=== PATIENT | female | born 1970 | race Caucasian/White ===

== ENCOUNTER 2018-09-27 21:25 | Emergency (ER) | payer MEDICARE, MEDICAID ==
[~2018-09-27] VITALS: Ht 162.6 cm; Wt 64.5 kg
[2018-09-27 21:39] VITALS: Ht 162.6 cm; Wt 64.5 kg
[2018-09-27] MEDS ORDERED: CYCLOBENZAPRINE10 MG PO (21:39)
[2018-09-27] MEDS ORDERED: SEROQUEL300 MG PO (21:40)
[2018-09-27] MEDS ORDERED: CLARITIN 10 MG10 MG PO (21:40)
[2018-09-27] MEDS ORDERED: HYDROXYZINE HCL10 MG PO (21:40)
[2018-09-27 23:23] LABS: BASOPHILS 0.6 % (0-2); EOSINOPHILS 1.7 % (0-7); HEMATOCRIT 41.7 % (36.0-48.0); HEMOGLOBIN 14.2 g/dL (12-16); IMMATURE GRANULOCYTES 0.4 % (0-5); LYMPHOCYTES 43.2 % (15-50); MCH 31.8 pg (26.0-34.0); MCHC 34.1 g/dL (31.0-37.0); MCV 93.3 fL (80.0-100.0); MEAN PLATELET VOLUME 10.7 fL (7.4-10.4); MONOCYTES 8.5 % (2-11); NEUTROPHILS 45.6 % (40-80); PLATELET COUNT 332 10x3/uL (130-400); RBC 4.47 10x6/uL (4.00-5.40); RDW 12.6 % (11.5-14.5); WBC 10.5 10x3/uL (4.8-10.8)
[2018-09-27 23:38] LABS: ALBUMIN 4.1 g/dL (3.4-5.0); ANION GAP 13.6 mmol/L (8-16); BILIRUBIN - TOTAL 0.41 mg/dL (0.2-1.3); CARBON DIOXIDE 26.3 mmol/L (21.0-32.0); POTASSIUM - SERUM 3.9 mmol/L (3.5-5.1)
[2018-09-28] MEDS ORDERED: TORADOL10 MG PO (00:48)
[2018-09-28 01:25] VITALS: BP 149/101
== END 2018-09-28 01:26 | disposition home or self-care (01) ==
LOC: D.ER 21:25
PROVIDERS: Family Medicine
DX: R51 Headache (principal)

== ENCOUNTER 2019-01-23 20:50 | Emergency (ER) | payer MEDICARE, MEDICAID ==
[~2019-01-23] VITALS: Ht 162.6 cm; Wt 65.5 kg
[~2019-01-23 20:50] MED LIST: CLARITIN 10 MG10 MG PO; CYCLOBENZAPRINE10 MG PO; HYDROXYZINE HCL10 MG PO; SEROQUEL300 MG PO; TORADOL10 MG PO
[2019-01-23 21:02] VITALS: Ht 162.6 cm; Wt 65.5 kg
[2019-01-23] MEDS ORDERED: SEROQUEL300 MG PO (21:03)
[2019-01-23] MEDS ORDERED: BUTALB-APAP-CA1 EACH PO (22:22)
[2019-01-23] MEDS ORDERED: ZOFRAN ODT4 MG/UDTAB PO (22:23)
[2019-01-23 23:47] VITALS: BP 137/88
== END 2019-01-23 23:48 | disposition home or self-care (01) ==
LOC: D.ER 20:50
DX: R51 Headache (principal); F17.200 Nicotine dependence, unspecified, uncomplicated

== ENCOUNTER 2019-03-02 12:49 | Emergency (ER) | payer MEDICARE, MEDICAID ==
[~2019-03-02] VITALS: Ht 162.6 cm; Wt 64.0 kg
[~2019-03-02 12:49] MED LIST changes: +BUTALB-APAP-CA1 EACH PO; +ZOFRAN ODT4 MG/UDTAB PO
[2019-03-02 13:00] VITALS: Ht 162.6 cm; Wt 64.0 kg
[2019-03-02 18:17] VITALS: BP 135/84
== END 2019-03-02 18:17 | disposition home or self-care (01) ==
LOC: D.ER 12:49
DX: R51 Headache (principal)

== ENCOUNTER 2020-09-12 21:44 | Emergency (ER) | payer MEDICARE, MEDICAID ==
[~2020-09-12] VITALS: Ht 162.6 cm; Wt 54.5 kg
[2020-09-12 21:49] VITALS: Ht 162.6 cm; Wt 54.5 kg
[2020-09-12] MEDS ORDERED: AZELASTINE137 MCG/0. NASAL (21:54)
[2020-09-12] MEDS ORDERED: STERAPRED 5MG 65 M1 PO (23:04)
[2020-09-12] MEDS ORDERED: MAXALT10 MG PO (23:04)
[2020-09-12 23:39] VITALS: BP 132/81
== END 2020-09-12 23:39 | disposition home or self-care (01) ==
LOC: D.ER 21:44
DX: R51.9 Headache, unspecified (principal)

== ENCOUNTER 2020-09-24 17:38 | Emergency (ER) | payer MEDICARE ==
[~2020-09-24] VITALS: Ht 162.6 cm; Wt 55.5 kg
[~2020-09-24 17:38] MED LIST changes: +AZELASTINE137 MCG/0. NASAL; +MAXALT10 MG PO; +STERAPRED 5MG 65 M1 PO
[2020-09-24 17:52] VITALS: Ht 162.6 cm; Wt 55.5 kg
[2020-09-24] MEDS ORDERED: ZOFRAN ODT4 MG/UDTAB PO (19:17)
[2020-09-24] MEDS ORDERED: BUTALB-APAP-CA1 EACH PO (19:17)
[2020-09-24 19:56] VITALS: BP 121/82
== END 2020-09-24 19:57 | disposition home or self-care (01) ==
LOC: D.ER 17:38
DX: R51.9 Headache, unspecified (principal)

== ENCOUNTER 2020-12-23 19:41 | Emergency (ER) | payer MEDICARE ==
[~2020-12-23] VITALS: Ht 162.6 cm; Wt 53.2 kg
[2020-12-23 20:06] VITALS: Ht 162.6 cm; Wt 53.2 kg
[2020-12-23] MEDS ORDERED: ATARAX 25 MG TA25 MG PO (20:08)
[2020-12-24 02:22] VITALS: BP 122/74
== END 2020-12-24 02:27 | disposition home or self-care (01) ==
LOC: D.ER 19:41
DX: G43.909 Migraine, unspecified, not intractable, without status migrainosus (principal); R11.2 Nausea with vomiting, unspecified